=== PATIENT | female | born 1935 | race Caucasian/White ===

== ENCOUNTER 2018-01-28 19:44 | Emergency (ER) | payer OTHER ==
[~2018-01-28] VITALS: Ht 167.6 cm; Wt 48.0 kg
[~2018-01-28 19:44] MED LIST: OMNIPAQUE 350 MG/ML, 100ML BOTTLE ONE
[2018-01-28] MEDS ORDERED: PLEASE ENTER ALLERGIES MC SCH (20:00)
[2018-01-28] MEDS ORDERED: PLEASE ENTER HEIGHT AND WEIGHT MC SCH (20:00)
[2018-01-28] MEDS ORDERED: SODIUM CHLORIDE FLUSH 10ML SYR IVF ONE (20:00)
[2018-01-28 20:25] LABS: BASOPHILS # (AUTO) 0.06 x10^3/uL (0-0.1); BASOPHILS % (AUTO) 0 % (0-1); EOSINOPHILS # (AUTO) 0.07 x10^3/uL (0-0.4); EOSINOPHILS % (AUTO) 0 % (1-7); LYMPHOCYTES # (AUTO) 0.79 x10^3/uL (1-3.4); LYMPHOCYTES % (AUTO) 5 % (22-44); MD NO; MEAN CORPUSCULAR HEMOGLOBIN 27.7 pg (27.0-34.8); MEAN CORPUSCULAR HGB CONC 33.4 g/dL (32.4-35.8); MEAN CORPUSCULAR VOLUME 83.1 fL (80-100); MEAN PLATELET VOLUME 7.6 fL (7.4-10.4); MONOCYTES # (AUTO) 0.44 x10^3/uL (0.2-0.8); MONOCYTES % (AUTO) 3 % (2-9); NEUTROPHILS % (AUTO) 91 % (42-75); PLATELET COUNT 348 x10^3/uL (130-400); RED BLOOD COUNT 4.94 x10^6/uL (3.82-5.3); RED CELL DISTRIBUTION WIDTH 14.6 % (9.6-15.2)
[2018-01-28 20:33] LABS: INTERNATIONAL NORMALIZED RATIO 0.93 (0.93-1.1); PROTHROMBIN TIME 9.7 Seconds (9.6-11.5)
[2018-01-28 20:35] LABS: ALANINE AMINOTRANSFERASE 25 U/L (12-78); ALBUMIN 4.1 g/dL (3.4-5.0); ANION GAP 9 mmol/L (5-15); CALCIUM 9.9 mg/dL (8.5-10.1); CHLORIDE 86 mmol/L (98-107)
[2018-01-28 20:38] LABS: ALKALINE PHOSPHATASE 88 U/L (45-117); BILIRUBIN,TOTAL 0.5 mg/dL (0.2-1.0); TOTAL PROTEIN 8.1 g/dL (6.4-8.2); TROPONIN I < 0.015 ng/mL (0.000-0.045)
[2018-01-28] MEDS ORDERED: ASPI-496 PO (22:09)
[2018-01-28] MEDS ORDERED: CALC-545 PO (22:09)
[2018-01-28] MEDS ORDERED: MOEX15TA2 PO (22:09)
[2018-01-28] MEDS ORDERED: SIMV40TA3 PO (22:09)
[2018-01-28] MEDS ORDERED: TRIA1CAP3 PO (22:09)
[2018-01-28] MEDS ORDERED: METH500C3 PO (22:09)
[2018-01-28] MEDS ORDERED: CRAN500C7 PO (22:09)
[2018-01-28] MEDS ORDERED: BACL20TA PO (22:09)
[2018-01-28] MEDS ORDERED: MAGN400T36 PO (22:09)
[2018-01-28] MEDS ORDERED: ASCO-96 PO (22:09)
[2018-01-28] MEDS ORDERED: ACET1TAB64 PO (22:09)
[2018-01-28] MEDS ORDERED: FLUO20CA8 PO (22:09)
[2018-01-28] MEDS ORDERED: GLAT40SY IM (22:09)
[2018-01-28 22:15] VITALS: BP 113/63
== END 2018-01-28 23:31 | disposition home or self-care (01) ==
LOC: ED 21:50
DX: J02.9 Acute pharyngitis, unspecified (principal); R06.00 Dyspnea, unspecified; K59.00 Constipation, unspecified; E87.1 Hypo-osmolality and hyponatremia; R79.1 Abnormal coagulation profile; Z87.891 Personal history of nicotine dependence
CPT/HCPCS: 36415; 71045; 71275; 74177; 80053; 83605; 83880; 84484; 85025; 85610; 85730; 87040; 87081; 87880; 93005; 99285; Q9967

== ENCOUNTER 2019-01-29 10:51 | Emergency (ER) | payer MEDICARE, OTHER ==
[~2019-01-29] VITALS: Ht 162.6 cm; Wt 48.1 kg
[~2019-01-29 10:51] MED LIST changes: +ACET1TAB64 PO; +ASCO-96 PO; +ASPI-496 PO; +BACL20TA PO; +CALC-545 PO; +CRAN500C7 PO; +FLUO20CA8 PO; +GLAT40SY IM; +MAGN400T36 PO; +METH500C3 PO; +MOEX15TA2 PO; -OMNIPAQUE 350 MG/ML, 100ML BOTTLE ONE; +SIMV40TA3 PO; +TRIA1CAP3 PO
[2019-01-29 10:56] VITALS: BP 124/63
[2019-01-29] MEDS ORDERED: TIZA6CAP PO (11:22)
[2019-01-29 11:35] LABS: BASOPHILS # (AUTO) 0.03 x10^3/uL (0-0.1); BASOPHILS % (AUTO) 0 % (0-1); EOSINOPHILS # (AUTO) 0.11 x10^3/uL (0-0.4); EOSINOPHILS % (AUTO) 1 % (1-7); LYMPHOCYTES # (AUTO) 1.47 x10^3/uL (1-3.4); LYMPHOCYTES % (AUTO) 16 % (22-44); MD NO; MEAN CORPUSCULAR HEMOGLOBIN 28.3 pg (27.0-34.8); MEAN CORPUSCULAR HGB CONC 33.8 g/dL (32.4-35.8); MEAN CORPUSCULAR VOLUME 83.7 fL (80-100); MEAN PLATELET VOLUME 7.4 fL (7.4-10.4); MONOCYTES # (AUTO) 0.57 x10^3/uL (0.2-0.8); MONOCYTES % (AUTO) 6 % (2-9); NEUTROPHILS # (AUTO) 7.22 x10^3/uL (1.8-6.8); NEUTROPHILS % (AUTO) 77 % (42-75); PLATELET COUNT 351 x10^3/uL (130-400); RED BLOOD COUNT 4.63 x10^6/uL (3.82-5.3); RED CELL DISTRIBUTION WIDTH 15.2 % (9.6-15.2)
[2019-01-29 11:44] LABS: ALBUMIN 3.5 g/dL (3.4-5.0); ANION GAP 7 mmol/L (5-15); CALCIUM 9.7 mg/dL (8.5-10.1); CHLORIDE 88 mmol/L (98-107); CREATININE 0.64 mg/dL (0.55-1.02)
--- NOTE | 2019-01-29 11:45 | NUR ---
PT BIB [facility], C/O FOOT PAIN AND PRESSURE SORES. PT STATES HX OF MS. FAMILY AND CAREGIVER AT BEDSIDE. 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 AFEBRILE, VSS
--- NOTE | 2019-01-29 12:42 | NUR ---
RESTING COMFORTABLY IN BED W/ CALL MEEKS IN HAND. 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 PROVIDER TO BEDSIDE TO COMMUNICATE RESULTS-LIKELY DISPO. PATIENT NOW COMPAINING OF GENERALIZED PAIN-PROVIDER TO ORDER PO PAIN MEDICATION. VSS. WILL CONTINUE TO MONITOR
[2019-01-29] MEDS ORDERED: HYDROcodone/APAP 5/325 TABLET PO ONE (13:00)
[2019-01-29] MEDS ORDERED: HYDROcodone/APAP 5/325 TABLET ONE (13:17)
--- NOTE | 2019-01-29 13:30 | NUR ---
[facility] TO BEDSIDE TO TRANSPORT HOME. LOWER EXTREMITY WOUND RE-WRAPPED AND HELPED CHANGED, VSS REMAIN STABLE.
--- NOTE | 2019-01-29 13:40 | NUR ---
PATIENT/FAMILY UPDATED ON WHAT TO WATCH OUT FOR W/ RECENT NARCOTIC ADMINISTRATION. PATIENT REPORTS PAIN UNCHANGED AT THIS TIME
== END 2019-01-29 14:18 | disposition home or self-care (01) ==
LOC: ED 12:24
DX: L97.511 Non-pressure chronic ulcer of other part of right foot limited to breakdown of skin (principal); E87.1 Hypo-osmolality and hyponatremia; M19.90 Unspecified osteoarthritis, unspecified site; G35 Multiple sclerosis
CPT/HCPCS: 36415; 80048; 82040; 85025; 99284

== ENCOUNTER 2019-02-07 12:20 | Emergency (ER) | payer MEDICARE ==
[~2019-02-07] VITALS: Ht 167.6 cm; Wt 45.0 kg
[~2019-02-07 12:20] MED LIST changes: +TIZA6CAP PO
--- NOTE | 2019-02-07 13:32 | NUR ---
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 CATH INSERTION SITE IS CLEAR OF INFECTION WITH NO VISIBLE REDNESS OR DRAINAGE. CATH IS A 18 MALAY THAT IS TO BE REPLACED BY ED
[2019-02-07 14:08] LABS: CULTURE INDICATED? YES; MICROSCOPIC INDICATED
[2019-02-07 14:43] VITALS: BP 106/61
== END 2019-02-07 16:52 | disposition home or self-care (01) ==
LOC: ED 14:34
DX: T83.038A Leakage of other urinary catheter, initial encounter (principal); M19.90 Unspecified osteoarthritis, unspecified site; Z87.891 Personal history of nicotine dependence; Y84.6 Urinary catheterization as the cause of abnormal reaction of the patient, or of later complication, without mention of misadventure at the time of the procedure; Y92.89 Other specified places as the place of occurrence of the external cause
CPT/HCPCS: 51701; 81001; 87077; 87086; 87147; 87186; 99284; P9612